=== PATIENT | female | born 1990 | race Caucasian/White ===

== ENCOUNTER 2020-08-05 12:57 | Emergency (ER) | payer OTHER ==
[~2020-08-05] VITALS: Ht 167.6 cm; Wt 72.2 kg
[2020-08-05 14:33] LABS: BASOPHILS % (AUTO) 1 % (0-1); EOSINOPHILS % (AUTO) 2 % (1-7); LYMPHOCYTES % (AUTO) 24 % (22-44); MEAN CORPUSCULAR HEMOGLOBIN 33.7 pg (27.0-34.8); MEAN CORPUSCULAR HGB CONC 34.9 g/dL (32.4-35.8); MONOCYTES % (AUTO) 9 % (2-9); NEUTROPHILS % (AUTO) 64 % (42-75); PLATELET COUNT 299 x10^3/uL (130-400); RED CELL DISTRIBUTION WIDTH 12.1 % (9.6-15.2)
[2020-08-05 14:34] LABS: MD NO
--- NOTE | 2020-08-05 14:41 | NUR ---
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
[2020-08-05 14:46] LABS: ALBUMIN 4.2 g/dL (3.4-5.0); ANION GAP 6 mmol/L (5-15); CALCIUM 8.8 mg/dL (8.5-10.1); CHLORIDE 109 mmol/L (98-107); CREATININE 0.87 mg/dL (0.55-1.02)
[2020-08-05 15:40] LABS: MICROSCOPIC NOT IND
[2020-08-05 15:41] VITALS: BP 116/70
--- NOTE | 2020-08-05 17:01 | NUR ---
Patient/Caregiver given discharge instructions and they have confirmed that they understand the instructions. Patient ambulatory with steady gait.
== END 2020-08-05 17:03 | disposition home or self-care (01) ==
LOC: ED 15:30
DX: N83.201 Unspecified ovarian cyst, right side (principal); G89.29 Other chronic pain
CPT/HCPCS: 36415; 76830; 80048; 81003; 82040; 84703; 85025; 99284